=== PATIENT | female | born 1970 | race African-American/Black ===

== ENCOUNTER 2017-05-25 19:32 | Emergency (ER) | payer OTHER ==
[2017-05-25 19:39] VITALS: BP 131/86; PULSE 69; TEMP 98.8; BMI 26.4
--- NOTE | 2017-05-25 23:00 | PDOC ---
History of Present Illness - General Chief Complaint: Pain Stated Complaint: PAIN, ACUTE Time Seen by Provider: 05/25/17 21:12 History Source: Patient Exam Limitations: No Limitations - History of Present Illness Initial Comments: 05/25/17 22:56 This is a 46yo woman with PMH HIV (unknwon CD4 and VL) who presents with pain to left maxilla. She states she recently broke a tooth and has been experiencing pain at the tooth below the gumline. Patient has already secured an appointment with a dentist for 05/29. She denies fevers, drainage into mouth, pain while eating, headaches or blurry vision. She reports pressure like feeling at left upper lip. ID- Hilario PMH- HIV+ PSH- denies Tob- denies ETOH- denies Illicits- denies NKDA Severity: moderate Past History - Past Medical History Allergies/Adverse Reactions: Allergies Allergy/AdvReac Type Severity Reaction Status Date / Time No Known Allergies Allergy Verified 05/26/17 12:54 Home Medications: Ambulatory Orders Elviteg/Johanny/Emtric/Tenofo Dis [Stribild Tablet] 1 each PO DAILY 05/25/17 Mirtazapine [Remeron -] 30 mg PO DAILY 05/25/17 Penicillin V Potassium [Pen Vee K -] 500 mg PO QID #28 tablet 05/25/17 HIV: Yes - Psycho/Social/Smoking Cessation Hx Suicidal Ideation: No Smoking History: Current every day smoker Have you smoked in the past 12 months: Yes Number of Cigarettes Smoked Daily: 10 Information on smoking cessation initiated: No Review of Systems - Review of Systems Able to Perform ROS?: Yes Is the patient limited Spanish proficient: No Constitutional: No: Symptoms Reported HEENTM: Yes: See HPI Respiratory: No: Symptoms reported Cardiac (ROS): No: Symptoms Reported ABD/GI: No: Symptoms Reported : No: Symptoms Reported Musculoskeletal: No: Symptoms Reported Integumentary: No: Symptoms Reported Neurological: No: Symptoms reported *Physical Exam - Vital Signs Last Vital Signs Temp Pulse Resp BP Pulse Ox 98.8 F 69 18 131/86 100 05/25/17 19:36 05/25/17 19:36 05/25/17 19:36 05/25/17 19:36 05/25/17 19:36 - Physical Exam General Appearance: Yes: Appropriately Dressed. No: Apparent Distress HEENT: positive: EOMI, HUY, Normal ENT Inspection, Normal Voice Neck: positive: Trachea midline, Supple. negative: Tender Respiratory/Chest: positive: Lungs Clear, Normal Breath Sounds. negative: Chest Tender, Respiratory Distress, Accessory Muscle Use Cardiovascular: positive: Regular Rhythm, Regular Rate, S1, S2. negative: Edema , JVD, Murmur Gastrointestinal/Abdominal: positive: Normal Bowel Sounds, Soft. negative: Tender Musculoskeletal: positive: Normal Inspection, CVA Tenderness Extremity: positive: Normal Capillary Refill, Normal Inspection, Normal Range of Motion Integumentary: positive: Normal Color, Dry, Warm Neurologic: positive: product picker II-XII NML intact, Fully Oriented, Alert, Normal Mood/ Affect, Normal Response, Motor Strength 01/26 ED Treatment Course - RADIOLOGY Radiology Studies Ordered: Category Date Time Status FACIAL BONES CT W/O CONTRAST [CT] Stat CT Scan 05/25/17 21:28 Completed Medical Decision Making - Medical Decision Making 05/25/17 22:56 A: This is a 46yo woman with PMH HIV (unknwon CD4 and VL) who presents with pain to left maxilla. She states she recently broke a tooth and has been experiencing pain at the tooth below the gumline. Patient has already secured an appointment with a dentist for 05/29. She denies fevers, drainage into mouth, pain while eating, headaches or blurry vision. She reports pressure like feeling at left upper lip. Swelling present to upper lip. TTP over tooth #11. Poor dentiton. P: CT facial bones Facial bone CT (without contrast) Clinical information: evaluate for dental abscess Multiplanar imaging was performed. As requested intravenous contrast was not administered. A small focus of cortical dehiscence is seen along the buccal surface of the left maxillary canine socket consistent with focal erosion. A punctate focus of air is seen within the soft tissues abutting this area of bone dehiscence. Overlying soft tissue edema is seen. There is no definite drainable fluid collection on this noncontrast study. A 1 cm right mandibular lucency is seen along the apices of the right second and third molar teeth 3 Bilateral maxillary and mandibular findings are noted consistent with dental and periodontal disease. Impression: An odontogenic infection is seen involving the left anterior maxillary region as discussed above. Reported By: Rigo Elias MD 05/25/17 [id number] -Pen Vee K 500mg bid x14 days *DC/Admit/Observation/Transfer Diagnosis at time of Disposition: Abscess, dental - Discharge Dispostion Disposition: HOME Condition at time of disposition: Stable Admit: No - Prescriptions Prescriptions: Penicillin V Potassium [Pen Vee K -] 500 mg PO QID #28 tablet - Referrals Referrals: STAFF,NOT ON [Primary Care Provider] - - Patient Instructions Printed Discharge Instructions: DI for Tooth Decay, Tooth Abscess Additional Instructions: Keep appointment with dentist scheduled for Sunday. Take penicillin as prescribed until you see dentist. Return to ER for fevers, headaches, dizziness, visual changes or any other concerns. - Post Discharge Activity
== END 2017-05-25 23:01 | disposition home or self-care (01) ==
LOC: JERFT 19:32
DX: K04.7 Periapical abscess without sinus (principal)
CPT/HCPCS: 70486-TC; 99281-25

== ENCOUNTER 2017-05-26 12:52 | Emergency (ER) | payer OTHER ==
[2017-05-26 12:57] VITALS: BP 137/82; PULSE 78; TEMP 98.3; BMI 26.4
[2017-05-26] MEDS ORDERED: RANITIDINE HCL 150 MG TABLET (FP) PO ONE (13:23)
[2017-05-26] MEDS ORDERED: diphenhydrAMINE HCL 25 MG CAPSULE (FP) PO ONE ×3 (13:24→13:32)
[2017-05-26] MEDS ORDERED: predniSONE 20 MG TABLET (UD) PO ONE (13:24)
[2017-05-26] MEDS ORDERED: RANITIDINE HCL 150 MG TABLET (FP) ONE ×2 (13:29→13:32)
[2017-05-26] MEDS ORDERED: predniSONE 20 MG TABLET (UD) ONE ×2 (13:30→13:32)
--- NOTE | 2017-05-26 13:38 | PDOC ---
History of Present Illness - General Chief Complaint: Allergic Reaction Stated Complaint: ALLERGIC REACTION Time Seen by Provider: 05/26/17 13:17 History Source: Patient Exam Limitations: No Limitations - History of Present Illness Initial Comments: 05/26/17 13:32 This is a 46yo woman with PMH HIV (unknown CD4 and VL) who presents with left sided facial swelling upon awaking today. She was seen and evaluated here for dental abscess on 05/25 and prescribed Pen Vee K. She has taken 1 dose of penicillin last night before and none today. She denies SOB, difficulty swallowing, vocal changes, itching, rash or fevers. Past History - Past Medical History Allergies/Adverse Reactions: Allergies Allergy/AdvReac Type Severity Reaction Status Date / Time No Known Allergies Allergy Verified 05/26/17 12:54 Home Medications: Ambulatory Orders Elviteg/Johanny/Emtric/Tenofo Dis [Stribild Tablet] 1 each PO DAILY 05/25/17 Mirtazapine [Remeron -] 30 mg PO DAILY 05/25/17 Clindamycin HCl [Cleocin HCl] 450 mg PO TID #21 capsule 05/26/17 HIV: Yes - Psycho/Social/Smoking Cessation Hx Anxiety: No Suicidal Ideation: No Smoking History: Current every day smoker Have you smoked in the past 12 months: Yes Number of Cigarettes Smoked Daily: 6 Information on smoking cessation initiated: No Hx Alcohol Use: No Drug/Substance Use Hx: No Substance Use Type: None Review of Systems - Review of Systems Able to Perform ROS?: Yes Is the patient limited Greek proficient: No Constitutional: No: Symptoms Reported HEENTM: Yes: See HPI Respiratory: No: Symptoms reported Cardiac (ROS): No: Symptoms Reported ABD/GI: No: Symptoms Reported : No: Symptoms Reported Musculoskeletal: No: Symptoms Reported Integumentary: No: Symptoms Reported Neurological: No: Symptoms reported *Physical Exam - Vital Signs Last Vital Signs Temp Pulse Resp BP Pulse Ox 98.3 F 78 18 137/82 100 05/26/17 12:54 05/26/17 12:54 05/26/17 12:54 05/26/17 12:54 05/26/17 12:54 - Physical Exam General Appearance: Yes: Appropriately Dressed. No: Apparent Distress HEENT: positive: EOMI, HUY, Normal ENT Inspection, Normal Voice, Other (edema from left maxillae extending into left orbit.) Neck: positive: Trachea midline, Supple. negative: Tender Respiratory/Chest: positive: Lungs Clear, Normal Breath Sounds. negative: Chest Tender, Respiratory Distress, Accessory Muscle Use Cardiovascular: positive: Regular Rhythm, Regular Rate Gastrointestinal/Abdominal: positive: Normal Bowel Sounds, Soft. negative: Tender, Organomegaly Musculoskeletal: positive: Normal Inspection. negative: CVA Tenderness Extremity: positive: Normal Capillary Refill, Normal Inspection, Normal Range of Motion Integumentary: positive: Normal Color, Dry, Warm Neurologic: positive: land acquisition specialist II-XII NML intact, Fully Oriented, Alert, Normal Mood/ Affect, Normal Response, Motor Strength 01/26 Medical Decision Making - Medical Decision Making 05/26/17 13:38 A: This is a 46yo woman with PMH HIV (unknown CD4 and VL) who presents with left sided facial swelling upon awaking today. She was seen and evaluated here for dental abscess on 05/25 and prescribed Pen Vee K. She has taken 1 dose of penicillin last night before and none today. She denies SOB, difficulty swallowing, vocal changes, itching, rash or fevers. Increased facial swelling in area of known dental abscess. No facial droop. Equal eyebrow movement. No stridor. No drooling. Speaking full sentences. Lungs CTAB. P: allergic reaction vs progression of infection - Zantac 150mg PO now - Benadryl 50mg PO now - Prednisone 40mg PO now - reassess 05/26/17 15:13 Swelling minimally improved. Patient does not want to be admitted. I will change antibiotics with strict instructions to return to care if not improved or worsened. *DC/Admit/Observation/Transfer Diagnosis at time of Disposition: Abscess, dental - Discharge Dispostion Disposition: HOME Condition at time of disposition: Stable Admit: No - Prescriptions Prescriptions: Clindamycin HCl [Cleocin HCl] 450 mg PO TID #21 capsule - Patient Instructions Additional Instructions: Stop taking the Penicillin. Start clindamycin 450mg orally every 8 hours until all medications are finished. Return to ER for worsening symptoms, fevers, pain, or any other concerns. Thank you for choosing us to provide your emergent medical needs.
== END 2017-05-26 15:29 | disposition home or self-care (01) ==
LOC: JERFT 12:52
DX: K04.7 Periapical abscess without sinus (principal)
CPT/HCPCS: 99281-25

== ENCOUNTER 2018-11-01 08:28 | Emergency (ER) | payer SELFPAY ==
[2018-11-01 08:31] VITALS: BMI 27.0
[2018-11-01 08:33] VITALS: BP 115/77; PULSE 88; TEMP 98.2
--- NOTE | 2018-11-01 08:34 | PDOC ---
History of Present Illness - General Chief Complaint: Eye Problem Stated Complaint: RIGHT EYE REDNESS Time Seen by Provider: 11/01/18 08:34 History Source: Patient - History of Present Illness Initial Comments: 11/01/18 10:01 Pt presents to the ED complaining of a three day history of R eye itching, swelling and foreign body sensation. Patient does have a history of similar complaints that occur primarily after exposure to a dog. Presents today because she has symptoms even though she has gotten rid of the dog. Denies fever, visual complaints or discharge from the eye. Denies photophobia. Past History - Past Medical History Allergies/Adverse Reactions: Allergies Allergy/AdvReac Type Severity Reaction Status Date / Time No Known Allergies Allergy Verified 11/01/18 08:28 Home Medications: Ambulatory Orders Emtricitab/Rilpiviri/Tenof Ala [Odefsey Tablet] 1 each PO DAILY 11/01/18 Epinastine HCl [Elestat] 5 ml OD QID PRN #20 ml 11/01/18 Loratadine 10 mg PO BID PRN #30 tab.rapdis 11/01/18 COPD: No - Suicide/Smoking/Psychosocial Hx Smoking History: Current every day smoker Have you smoked in the past 12 months: Yes Number of Cigarettes Smoked Daily: 3 Information on smoking cessation initiated: Yes Hx Alcohol Use: No Drug/Substance Use Hx: No Substance Use Type: None Review of Systems - Review of Systems Able to Perform ROS?: Yes Is the patient limited Djiboutian proficient: No Constitutional: No: Symptoms Reported, See HPI, Chills, Diaphoresis, Fever, Loss of Appetite, Malaise, Night Sweats, Weakness, Weight Stable, Unintentional Wgt. Loss, Unexplained wgt Loss, Other HEENTM: Yes: Eye Pain, Tearing. No: Symptoms Reported, See HPI, Blurred Vision , Recent change in vision, Double Vision, Cataracts, Ear Pain, Ocular Prothesis , Ear Discharge, Nose Pain, Nose Congestion, Tinnitus, Nose Bleeding, Hearing Loss, Throat Pain, Throat Swelling, Mouth Pain, Dental Problems, Difficulty Swallowing, Mouth Swelling, Other *Physical Exam - Vital Signs Last Vital Signs Temp Pulse Resp BP Pulse Ox 98.2 F 88 17 115/77 100 11/01/18 08:28 11/01/18 08:28 11/01/18 08:28 11/01/18 08:28 11/01/18 08:28 - Physical Exam Comments: 11/01/18 10:05 General: alert, NAD HEENT: EOMI, PERRL + injected conjunctiva and sclera of the R eye. + extremely mild swelling of the upper and lower eyelid of the R eye. Lids inverted with no foreign body or stye. No discharge or crusting in eyelids. No corneal abrasion on fluorescein exam. HEENT: positive: EOMI Moderate Sedation - Procedure Monitoring Vital Signs: Procedure Monitoring Vital Signs Temperature 98.2 F 11/01/18 08:28 Pulse Rate 88 11/01/18 08:28 Respiratory Rate 17 11/01/18 08:28 Blood Pressure 115/77 11/01/18 08:28 O2 Sat by Pulse Oximetry (%) 100 11/01/18 08:28 Medical Decision Making - Medical Decision Making 11/01/18 10:12 Pt presents to the ED complaining of R eye redness and irritation that is most consistent with allergic conjunctivitis. No signs of corneal abrasion, uvetitis or orbital/periorbital cellulitis. No signs of infectious conjunctivitis. Will treat with antihistamines and discharge home . *DC/Admit/Observation/Transfer Diagnosis at time of Disposition: Allergic conjunctivitis Qualifiers: Laterality: right Qualified Code(s): H10.11 - Acute atopic conjunctivitis, right eye - Discharge Dispostion Disposition: HOME Condition at time of disposition: Good Decision to Admit order: No - Prescriptions Prescriptions: Epinastine HCl [Elestat] 5 ml OD QID PRN #20 ml PRN Reason: For Itching Loratadine 10 mg PO BID PRN #30 tab.rapdis PRN Reason: For Itching - Referrals - Patient Instructions Printed Discharge Instructions: DI for Conjunctivitis Additional Instructions: You have inflammation of your eye that is most likely caused by an allergic reaction. You should avoid rubbing your eye as it may scratch your eyeball. You should return to the ED for worsening vision or severe eye pain, fever, discharge from your eye. You can use the eye drops prescribed to help with the itching, or you can use the oral antihistamine prescribed. Cold compresses may also help. - Post Discharge Activity
[2018-11-01] MEDS ORDERED: TETRACAINE 0.5% OPHTH SOLN 2 ML BOTTLE ONE (08:56)
[2018-11-01] MEDS ORDERED: FLUORESCEIN NA 1 EA STRIP ONE (08:56)
[2018-11-01] MEDS ORDERED: FLUORESCEIN NA 1 EA STRIP OD ONE (09:18)
[2018-11-01] MEDS ORDERED: TETRACAINE 0.5% HCL 0.6ML DROPPER.BOTTLE OD ONE (09:24)
== END 2018-11-01 09:25 | disposition home or self-care (01) ==
LOC: FER 08:28
DX: H10.11 Acute atopic conjunctivitis, right eye (principal); F17.210 Nicotine dependence, cigarettes, uncomplicated
CPT/HCPCS: 99282-25

== ENCOUNTER 2018-11-10 11:11 | Emergency (ER) | payer SELFPAY ==
[2018-11-10 11:16] VITALS: BP 123/80; PULSE 82; TEMP 98; BMI 26.9
[2018-11-10] MEDS ORDERED: diphenhydrAMINE HCL 25 MG CAPSULE (FP) PO ONE (11:29)
--- NOTE | 2018-11-10 11:29 | PDOC ---
History of Present Illness - General Chief Complaint: Edema Stated Complaint: LEFT FACIAL SWELLING Time Seen by Provider: 11/10/18 11:16 History Source: Patient Exam Limitations: No Limitations - History of Present Illness Initial Comments: 11/10/18 11:32 HPI 48 YOF with h/o HIV on [place], presenting with left sided facial and lower eyelid swelling since this morning. she admits to possibly sleeping on that side of the face last night. also she was hit in the face yesterday by her child while playing. has had history of facial and eyelid swelling previously 2/ 2 dog allergies, but no new exposures or allergens known. Denies fever, chills, headache, dizziness, visual or hearing changes, eye pain, visual deficits, eye discharge or discoloration. No chest pain, SOB, palpitation , dizziness, weakness, N, V, D, abdominal pain, bladder and bowel problems, numbness or tingling, No sick contacts or environmental triggers. No new changes in medications. compliant with haart therapy. Allergies: NKA Past Medical History: HIV Social history: Lives with family. No smoking. No alcohol. No illicit drugs. Surgical history: noncontributory ROS Constitutional: no fevers or chills. HEAD, EYES, EARS, NOSE AND THROAT: No change in vision or hearing. No ear pain or discharge. No sore throat or mouth pain. No difficulty swallowing. No congestion. +facial swelling CVS: no cp or syncope. Resp: no sob. No cough. Gastrointestinal: no abdominal pain, nausea or vomiting. MUSCULOSKELETAL: No joint pain and swelling. No neck or back pain. SKIN: no redness or skin changes, no discharge, no rash. No wounds. Hematologic: no easy bruising/bleeding. NEUROLOGIC: No headache, dizziness, LOC or altered mental status. No weakness, numbness or tingling. Allergic/Immunologic: +dog allergies. All other systems reviewed and negative, or as documented in HPI. PE: General: Well appearing, awake and alert, NAD. HEENT: NCAT, PERRL, EOMI, no ciliary or scleral injection, clear conjunctiva, anicteric, moist mucus membranes, clear oropharynx, no oral lesions; uvula midline.. normal phonation. +left facial nonpitting edema, lower eye lid and cheek - nontender, no overlying skin changes or signs of infection Neck: neck supple, FROM; no meningeal signs. Resp: CTAB, normal and even respirations, no respiratory distress CVS: RRR, no murmurs, 2+ peripheral pulses throughout, no peripheral edema Abdomen: soft, NTND, no peritoneal signs. Back: nontender, normal inspection and ROM MSK: no edema, LENZ x4, ROM intact. No clubbing or cyanosis. normal bulk and tone. Neuro: alert, oriented appropriately; no focal neurologic deficits. CN II-XII grossly intact. speech clear. Skin: warm and well perfused, cap refill <2 sec, normal color Past History - Past Medical History Allergies/Adverse Reactions: Allergies Allergy/AdvReac Type Severity Reaction Status Date / Time No Known Allergies Allergy Verified 11/10/18 11:12 Home Medications: Ambulatory Orders Diphenhydramine [Benadryl -] 50 mg PO TID #30 capsule 11/10/18 Emtricitab/Rilpiviri/Tenof Ala [Odefsey Tablet] 1 each PO DAILY 11/10/18 Mirtazapine [Remeron -] 15 mg PO HS 11/10/18 COPD: No Other medical history: hiv - Suicide/Smoking/Psychosocial Hx Smoking History: Current every day smoker Have you smoked in the past 12 months: Yes Number of Cigarettes Smoked Daily: 4 Information on smoking cessation initiated: Yes Hx Alcohol Use: (occasional) Drug/Substance Use Hx: No Substance Use Type: None *Physical Exam - Vital Signs Last Vital Signs Temp Pulse Resp BP Pulse Ox 98 F 82 18 123/80 98 11/10/18 11:11 11/10/18 11:11 11/10/18 11:11 11/10/18 11:11 11/10/18 11:11 Moderate Sedation - Procedure Monitoring Vital Signs: Procedure Monitoring Vital Signs Temperature 98 F 11/10/18 11:11 Pulse Rate 82 11/10/18 11:11 Respiratory Rate 18 11/10/18 11:11 Blood Pressure 123/80 11/10/18 11:11 O2 Sat by Pulse Oximetry (%) 98 11/10/18 11:11 Medical Decision Making - Medical Decision Making 11/10/18 11:38 hpi as documented. VS wnl, no fever, well appearing left facial and eyelid swelling, nonpitting, no s/s infection - possibly post inflammation vs trauma vs dependency while sleeping possible allergy appearance, but no known exposures will trial benadryl prn for the swelling, and cool compresses to the face. rest advised no neuro deficits, no e/o anaphylaxis or allergic reaction. no ocular involvement and no visual deficits, so doubt ocular etiology or complication. no e/o angioedema on examination, does not use KAI/Arb or antihypertensive meds avoid triggers. Pt to be discharged in stable condition. Patient and family made aware of impression and plan, return precautions discussed (including but not limited to worsening pain or symptoms), fevers, or signs of infection, chest pain, respiratory distress, inability to tolerate oral intake, dehydration, syncope, or neurologic changes). Follow up with PMD as recommended, follow up information provided, take medications as instructed for duration of time. continue with supportive care, avoid triggers and precipitants. Patient does not suffer from an acute life-threatening medical condition at this time she is safe for outpatient follow-up. 11/10/18 11:40 11/10/18 11:45 *DC/Admit/Observation/Transfer Diagnosis at time of Disposition: Left facial swelling - Discharge Dispostion Disposition: HOME Condition at time of disposition: Stable Decision to Admit order: No - Prescriptions Prescriptions: Diphenhydramine [Benadryl -] 50 mg PO TID #30 capsule - Referrals Referrals: [facility] [place] [Provider Group] [facility] [Provider Group] - Patient Instructions Printed Discharge Instructions: DI for Dependent Edema Additional Instructions: you have swelling on your face that could be inflammatory after being hit in the face or from sleeping on that side you can apply cool compresses to your face to reduce the puffiness and swelling benadryl every 8 hours as needed for the swelling, you can take 1-[address] or drink alcohol or use machinery when using benadryl as it can cause you to feel drowsy. follow up with your primary doctor if symptoms worsen, including difficulty breathing, throat or eye/vision involvement or skin changes that may suggest any kind of infection. - Post Discharge Activity
[2018-11-10] MEDS ORDERED: diphenhydrAMINE HCL 50 MG CAPSULE ONE (11:30)
== END 2018-11-10 11:47 | disposition home or self-care (01) ==
LOC: FER 11:11
DX: Z21 Asymptomatic human immunodeficiency virus [HIV] infection status (principal); R22.1 Localized swelling, mass and lump, neck; F17.210 Nicotine dependence, cigarettes, uncomplicated
CPT/HCPCS: 99283-25

== ENCOUNTER 2024-06-16 21:59 | Emergency (ER) | payer OTHER ==
[2024-06-16 22:07] VITALS: RESP 20; TEMP 98.1; BMI 27.4
[2024-06-16] MEDS ORDERED: ACETAMINOPHEN 500 MG TABLET (FP) ONE (23:16)
[2024-06-16] MEDS ORDERED: KETOROLAC TROMETHAMINE 30 MG/1 ML VIAL ONE (23:16)
[2024-06-16] MEDS: KETOROLAC TROMETHAMINE 30 MG/1 ML VIAL IM ONE (23:23)
[2024-06-16] MEDS: ACETAMINOPHEN 500 MG TABLET (FP) PO ONE (23:23)
[2024-06-17 00:51] VITALS: BP 133/74; PULSE 74
== END 2024-06-17 00:50 | disposition home or self-care (01) ==
LOC: JERFT 21:59
PROC: 3E0133Z Introduction of Anti-inflammatory into Subcutaneous Tissue, Percutaneous Approach (ICD-10-PCS; principal; 2024-06-16)
DX: M25.511 Pain in right shoulder (principal); R07.9 Chest pain, unspecified; V49.40XA Driver injured in collision with unspecified motor vehicles in traffic accident, initial encounter; Y92.410 Unspecified street and highway as the place of occurrence of the external cause
CPT/HCPCS: 71046-TC-FY; 99284-25